=== PATIENT | male | born 1960 | race Caucasian/White ===

== ENCOUNTER 2023-11-14 07:49 | Outpatient (CLI) | payer OTHER | END 2023-11-14 07:57 | disposition home or self-care (01) | LOC: RX STUDY 07:49 | DX: K21.9 Gastro-esophageal reflux disease without esophagitis (principal) ==

== ENCOUNTER 2024-01-19 07:03 | Outpatient (CLI) | payer OTHER | END 2024-01-19 07:09 | disposition home or self-care (01) | LOC: SONOGRAMA 07:03 | PROVIDERS: ATTEND Internal Medicine Gastroenterology | DX: R10.9 Unspecified abdominal pain (principal) ==

== ENCOUNTER 2024-01-30 09:09 | Outpatient (CLI) | payer OTHER ==
[2024-01-30 10:31] LABS: CREATININE SERUM 0.79 mg/dL (0.70-1.30)
== END 2024-01-30 09:13 | disposition home or self-care (01) ==
LOC: LAB 09:09
PROVIDERS: ATTEND Radiology Diagnostic Radiology
DX: R10.9 Unspecified abdominal pain (principal); R63.4 Abnormal weight loss

== ENCOUNTER 2024-02-06 07:20 | Outpatient (CLI) | payer OTHER | END 2024-02-06 07:29 | disposition home or self-care (01) | LOC: TOM 07:20 | PROVIDERS: ATTEND Internal Medicine Gastroenterology | DX: R10.9 Unspecified abdominal pain (principal); R63.4 Abnormal weight loss | CPT/HCPCS: 74177; Q9965 ==

== ENCOUNTER → 2024-03-12 08:30 | Outpatient (CLI) | payer OTHER ==
[2024-03-12 10:08] LABS: CREATININE SERUM 0.89 mg/dL (0.70-1.30)
== END | disposition home or self-care (01) ==
LOC: LAB 08:30
PROVIDERS: ATTEND Radiology Diagnostic Radiology
DX: K86.2 Cyst of pancreas (principal); K86.9 Disease of pancreas, unspecified

== ENCOUNTER 2024-03-19 07:19 | Outpatient (CLI) | payer OTHER | END 2024-03-19 12:48 | disposition home or self-care (01) | LOC: MRI 07:19 | PROVIDERS: ATTEND Internal Medicine Gastroenterology | DX: K86.2 Cyst of pancreas (principal); K86.9 Disease of pancreas, unspecified | CPT/HCPCS: 74183; Q9965; 74182 ==

== ENCOUNTER 2024-07-06 07:01 | Outpatient (CLI) | payer OTHER | END 2024-07-06 07:04 | disposition home or self-care (01) | LOC: RAD 07:01 | PROVIDERS: ATTEND Family Medicine Adult Medicine | DX: I11.9 Hypertensive heart disease without heart failure (principal); K21.9 Gastro-esophageal reflux disease without esophagitis ==

== ENCOUNTER 2025-03-07 06:20 | Outpatient (CLI) | payer OTHER ==
[2025-03-07 07:14] LABS: URINE APPEARANCE Clear; URINE BILIRRUBIN Negative (NEGATIVE); URINE COLOR Yellow; URINE GLUCOSE Negative (NEGATIVE); URINE KETONE Negative (NEGATIVE); URINE LEUKOCYTE Negative; URINE NITRATE Negative; URINE PROTEIN Negative (NEGATIVE); URINE UROBILINOGEN 0.2 E.U./dl
[2025-03-07 07:16] LABS: URINE RBC 13.0 uL (0.0-20.8)
[2025-03-07 07:23] LABS: URINE BACTERIA 2.3 uL (0.0-1933); URINE BLOOD TRACES; URINE CAST 0.00 uL (0.0-1.40); URINE EPITHELIAL CELLS 0.1 uL (0.0-38.8); URINE WBC 0.7 uL (0.0-23.2)
[2025-03-07 08:07] LABS: BUN CREA RATIO 18.0 (7.0-25.0); CREATININE SERUM 0.87 mg/dL (0.70-1.30); GFR 87.79; GLUCOSE FASTING 136.0 mg/dL (65-100); OSMOLALITY SERUM 286.0 MOSM/KG (275-295); PROSTATIC SPECIFIC ANTIGEN 0.649 NG/ML (0.010-4.00)
== END 2025-03-07 06:25 | disposition home or self-care (01) ==
LOC: LAB 06:20
DX: R31.21 Asymptomatic microscopic hematuria (principal); R39.15 Urgency of urination; Z12.5 Encounter for screening for malignant neoplasm of prostate; N28.1 Cyst of kidney, acquired

== ENCOUNTER 2025-03-11 07:07 | Outpatient (CLI) | payer OTHER | END 2025-03-11 07:17 | disposition home or self-care (01) | LOC: SONOGRAMA 07:07 | DX: R31.21 Asymptomatic microscopic hematuria (principal) ==

== ENCOUNTER 2025-05-08 07:25 | Outpatient (CLI) | payer OTHER ==
[2025-05-08 09:05] LABS: CREATININE SERUM 1.0 mg/dL (0.70-1.30)
== END 2025-05-08 07:29 | disposition home or self-care (01) ==
LOC: LAB 07:25
PROVIDERS: ATTEND Radiology Diagnostic Radiology
DX: R93.3 Abnormal findings on diagnostic imaging of other parts of digestive tract (principal)